=== PATIENT | female | born 1995 | race Caucasian/White ===

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

== ENCOUNTER 2017-02-06 11:18 | Emergency (ER) | payer BC ==
[~2017-02-06] VITALS: Ht 170.2 cm; Wt 74.7 kg
[~2017-02-06 11:18] MED LIST: BCPILLS PO; ONDA4TAB65 PO; OXYC1TAB3 PO; SERT1TAB72 PO; SYMIN160 INH
[2017-02-06 11:27] VITALS: Ht 170.2 cm; Wt 74.7 kg
[2017-02-06] MEDS ORDERED: SODIUM CHLORIDE 0.9% 1000ML 1,000 ML IV STA (11:43)
--- NOTE | 2017-02-06 12:23 | EMERGENCY ROOM VISIT NOTE ---
History First contact with patient: 11:30 Chief Complaint: SYNCOPE (NEAR SYNCOPE) Stated Complaint: NEAR SYNCOPE Nursing Triage Summary: pt arrived bls from [facility] pt was recieving fluids back and felt as if she was going to pass out. ems reports she is down approx 600cc fluid pt c/o left arm hematoma 10/18 for pain History of Present Illness The patient is a 21 year old female who presents to the Emergency Room via ambulance with complaints of "near-syncope". The patient states that she was by her life, donating blood/plasma today around 9 AM, and was finishing around 10 AM, when she noticed that the left antecubital IV began with bleeding, and also notes swelling of the left arm. She states that she felt very queasy, and almost passed out. She notes that she was down about 600 mL of fluid, therefore they began an IV in her right antecubital region, but were unsuccessful. They then sent her here for further evaluation and management, to include fluids. She at this time notes she feels a little of a headache, and notes pain in both antecubital regions. She has donated plasma twice in the past, with today being the third time. Review of Systems A complete 10-point Review of Systems was discussed with the patient, with pertinent positives and negatives listed in the History of Present Illness. All remaining Review of Systems questions can be considered negative unless otherwise specified. Past Medical/Surgical History Medical Problems: (1) Dehydration (2) Flank pain Family History No pertinent. Social History Smoking Status: Never Smoker Social History: Patient is currently a [employer] student. Current/Historical Medications Scheduled Control Pills ( Control Pills), 1 TAB PO DAILY Sertraline Hcl (Zoloft), 75 MG PO DAILY Allergies Coded Allergies: No Known Allergies (Unverified , 02/06/17) Physical Exam Vital Signs Date Time Temp Pulse Resp B/P (MAP) Pulse Ox O2 Delivery O2 Flow Rate FiO2 02/06/17 14:05 36.7 70 18 110/67 98 02/06/17 13:25 69 18 112/66 100 Room Air 02/06/17 11:27 36.7 71 18 117/62 96 Room Air Physical Exam VITAL SIGNS - Vital signs and nursing notes were reviewed. Patient is afebrile , normotensive, non-tachycardic and saturating well on room air 96%. GENERAL -21-year-old female appearing her stated age who is in no acute distress. Communicates well with provider and answers questions appropriately. SKIN - Without rashes. Both antecubital regions, illicit one small puncture wound each, without extravasation of blood. Small hematoma formation or the left antecubital region. No evidence of active extravasation. HEAD - NC/AT. EYES - PERRL with EOMI bilaterally. Sclera anicteric. EARS - No deformities of external structures noted on gross examination bilaterally. MOUTH/OROPHARYNX - Without perioral cyanosis. LUNGS - Chest wall symmetric without accessory muscle use, intercostals retractions, or central cyanosis. Normal vesicular breath sounds CTA B/L. No wheezes, rales, or rhonchi appreciated. CARDIAC - RRR with S1/S2. No murmur, rubs, or gallops appreciated. EXTREMITIES - No clubbing or peripheral cyanosis. No pretibial edema present. She is neurovascularly intact in the family's. Minimal tenderness to palpation overlying both antecubital regions. Please refer to skin regarding the rest of the examination. +5/5 strength noted in UE/LE bilaterally. NEUROLOGIC - Cranial nerves II through XII grossly intact. PSYCH - A&O. Pt is very pleasant and interacts well with examiner. Medical Decision & Procedures Laboratory Results Test 02/06/17 12:14 Bedside Hemoglobin 16.3 g/dl (12.0-16.0) Bedside Hematocrit 48 % (37-47) Bedside Sodium 138 mEq/L (135-144) Bedside Potassium 4.0 mEq/L (3.3-5.0) Bedside Chloride 102 mEq/L (101-112) Bedside Total CO2 23 mEq/l (24-31) Anion Gap 18.0 mmol/L (16-25) Bedside Blood Urea Nitrogen 15 mg/dl (7-18) Bedside Creatinine 0.7 mg/dl Bedside Glucose (other) 81 mg/dl (70-99) Bedside Ionized Calcium (Karen) 1.11 mmol/l Medications Administered Medications (Trade) Dose Ordered Sig/Sarita Route Start Time Stop Time Status Last Admin Dose Admin Sodium Chloride 1,000 ml @ 999 mls/hr Q1H1M STAT IV 02/06/17 11:43 02/06/17 12:43 DC 02/06/17 11:43 999 MLS/HR Medical Decision Patient was seen and evaluated as above. After passing a thorough history and physical examination, it was evident the patient is likely experiencing vasovagal near syncope secondary to seeing the blood coming out of her left arm , as well as being fluid depleted. I will establish an IV at this time, perform i-STAT, to verify hemoglobin is stable and then hydrate her with 1 L of normal saline. The puncture wounds from the venipuncture were inspected, and without gross abnormality. No active hemorrhages. She was neurovascularly intact in her extremities. 1 L of normal saline was instilled, and she is reevaluated during her stay. She was then feeling less dizzy, and was able to lay down, sit and stand without feeling lightheaded or dizzy. Should this time appears stable for outpatient management. She is to follow-up with [facility] regarding his symptoms today. She is to return for worsening. At this time do not suspect any emergent cause to her symptoms. She was educated upon worrisome symptoms which to return, had questions prior to discharge, and was discharged home in good condition. In evaluation treatment this patient the following differential diagnoses were entertained: [place], PE, vasovagal syncope, fluid depletion, among others. Impression Primary Impression: Dehydration Departure Information Dispostion Home / Self-Care Condition GOOD Referrals [facility] (PCP) Patient Instructions My [facility] Additional Instructions You were seen in the emergency Department for a near syncopal event following donating blood. At this time you been rehydrated with 1 L of saline. Please follow-up with [facility] services later in the week for recheck of your symptoms. Please return the emergency department with any new/concerning symptoms. Please use ibuprofen as directed on the bottle for any pain in the arm. Please use ice to the regions as necessary. Please be careful to not apply the extremity to the skin. Thank you for your time.
[2017-02-06 12:25] LABS: ISTAT CREATININE 0.7 mg/dl; ISTAT HEMOGLOBIN 16.3 g/dl (12.0-16.0); ISTAT IONIZED CALCIUM 1.11 mmol/l
[2017-02-06 14:05] VITALS: BP 110/67; PULSE 70; TEMP 36.7; O2SAT 98
== END 2017-02-06 14:06 | disposition home or self-care (01) ==
LOC: EDBD 11:18 → C.EDC 11:19
DX: E86.0 Dehydration (principal); Z79.899 Other long term (current) drug therapy

== ENCOUNTER → 2017-04-03 | Outpatient (CLI) | payer BC ==
[~2017-04-03] MED LIST changes: -ONDA4TAB65 PO; -OXYC1TAB3 PO; -SYMIN160 INH
[2017-04-03 13:48] LABS: PREG INTERNAL NEGATIVE QC NEG CLEAR BACKGROUND; PREG INTERNAL POSITIVE QC POS CONTROL LINE
== END | disposition home or self-care (01) ==
LOC: C.LAB1850 12:05
PROVIDERS: ATTEND Physician Assistant
DX: N94.6 Dysmenorrhea, unspecified (principal)

== ENCOUNTER 2017-07-03 22:47 | Emergency (ER) | payer BC, OTHER ==
[~2017-07-03] VITALS: Ht 170.2 cm; Wt 73.1 kg
[2017-07-03 22:51] VITALS: TEMP 37.3; Ht 170.2 cm; Wt 73.1 kg
[2017-07-03] MEDS ORDERED: ONDANSETRON INJ 2 MG/ML 2 ML VIAL IV STA (23:09)
[2017-07-03] MEDS ORDERED: KETOROLAC TROMETHAMINE 30 MG/ML VIAL IV STA (23:09)
[2017-07-03 23:36] VITALS: O2SAT 98
[2017-07-03 23:40] LABS: BASO % 0.5 %; BASO ABS # 0.03 K/uL (0-0.2); EOS % 1.1 %; EOS ABS # 0.06 K/uL (0-0.5); HEMATOCRIT 41.6 % (37-47); HEMOGLOBIN 14.7 g/dL (12.0-16.0); IG# 0.01 K/uL (0.00-0.02); LYMPH % 31.1 %; LYMPH ABS # 1.71 K/uL (1.2-3.4); MEAN CORPUSCULAR HEMOGLOBIN 30.8 pg (25-34); MEAN CORPUSCULAR HGB CONC 35.3 g/dl (32-36); MEAN PLATELET VOLUME 11.2 fL (7.4-10.4); MONO % 6.5 %; MONO ABS # 0.36 K/uL (0.11-0.59); NEUT % 60.6 %; NEUT ABS # 3.33 K/uL (1.4-6.5); PLATELET COUNT 186 K/uL (130-400); RED CELL DISTRIBUTION WIDTH CV 12.9 % (11.5-14.5); RED CELL DISTRIBUTION WIDTH SD 41.3 fL (36.4-46.3)
[2017-07-03 23:59] LABS: ALBUMIN 3.8 gm/dl (3.4-5.0); CREATININE 0.83 mg/dl (0.60-1.20); POTASSIUM 3.8 mmol/L (3.5-5.1)
[2017-07-04] MEDS ORDERED: OPTIRAY 320 IV PRN (01:00)
[2017-07-04] MEDS ORDERED: MoRPHine SULFATE 4 MG/ML 1 ML CARP\\VIAL IV STA (02:50)
--- NOTE | 2017-07-04 04:30 | EMERGENCY ROOM VISIT NOTE ---
History First contact with patient: 22:59 Chief Complaint: ABDOMINAL PAIN Stated Complaint: INTENSE BACK AND ABDOMINAL PAIN Nursing Triage Summary: Patient reports RUQ abdominal pain radiating to right back. Unable to stand up straight. History of Present Illness The patient is a 22 year old female who presents to the Emergency Room with complaints of right-sided abdominal pain and right side/flank pain for the past day that is steadily getting worse. Patient describes the pain as cramping, ranging in severity 5 out of 10. Nothing makes it better or worse. It occasionally radiates to her back. Patient denies chest pain, dyspnea, fever, chills, vomiting, diarrhea, urinary symptoms. She has had kidney stones before but this feels different. Review of Systems See HPI for pertinent positives & negatives. A total of 10 systems reviewed and were otherwise negative. Past Medical/Surgical History Medical Problems: (1) Dehydration (2) Flank pain Social History Smoking Status: Never Smoker Smokeless Tobacco Use: No Drug Use: none Occupation Status: [employer] student Current/Historical Medications Scheduled Control Pills ( Control Pills), 1 TAB PO DAILY Physical Exam Vital Signs Date Time Temp Pulse Resp B/P (MAP) Pulse Ox O2 Delivery O2 Flow Rate FiO2 07/04/17 03:37 61 16 105/56 95 Room Air 07/04/17 00:30 79 18 103/55 100 Room Air 07/03/17 23:36 98 Room Air 07/03/17 22:51 37.3 92 20 120/79 99 Room Air Physical Exam VITALS: Vitals are noted on the nurse's note and reviewed by myself. Vital signs stable. GENERAL: Pleasant female, in no acute distress, nondiaphoretic, well-developed well-nourished. SKIN: The skin was without rashes, erythema, edema, or bruising. There is no tenting of the skin. Capillary reflex less than 2 seconds. HEAD: Normocephalic atraumatic. EARS: External auditory canals clear, tympanic membranes pearly [place] without erythema or effusion bilaterally. EYES: Pupils equal round and reactive to light and accommodation. Conjunctivae without injection, sclerae without icterus. Extraocular movements intact. NOSE: Patent, turbinates without inflammation or discharge. MOUTH: Mucous membranes moist. Pharynx without erythema or exudate. Uvula midline. Airway patent. Tongue does not deviate. NECK: Supple without nuchal rigidity. No lymphadenopathy. No thyromegaly. Cervical spine is nontender. No JVD. HEART: Regular rate and rhythm without murmurs gallops or rubs. LUNGS: Clear to auscultation bilaterally without wheezes, rales or rhonchi. No dullness to percussion. No retractions or accessory muscle use. ABDOMEN: Positive bowel sounds x 4. Normal tympanic percussion. Soft, tender to palpation right upper and lower quadrants, no CVA tenderness, without masses or organomegaly. Ramirez sign negative. No guarding or rebound tenderness. MUSCULOSKELETAL: No muscle atrophy, erythema, or edema noted. NEURO: Patient was alert and oriented to person place and time. Normal sensation to light and sharp touch. No focal neurological deficits. Medical Decision & Procedures Laboratory Results 07/03/17 23:25 Red Blood Count 4.78, Mean Corpuscular Volume 87.0, Mean Corpuscular Hemoglobin 30.8, Mean Corpuscular Hemoglobin Concent 35.3, Mean Platelet Volume 11.2, Neutrophils (%) (Auto) 60.6, Lymphocytes (%) (Auto) 31.1, Monocytes (%) (Auto) 6.5, Eosinophils (%) (Auto) 1.1, Basophils (%) (Auto) 0.5, Neutrophils # (Auto) 3.33, Lymphocytes # (Auto) 1.71, Monocytes # (Auto) 0.36, Eosinophils # (Auto) 0.06, Basophils # (Auto) 0.03 07/03/17 23:25 Test 07/03/17 23:25 07/04/17 00:20 White Blood Count 5.50 K/uL (4.8-10.8) Red Blood Count 4.78 M/uL (4.2-5.4) Hemoglobin 14.7 g/dL (12.0-16.0) Hematocrit 41.6 % (37-47) Mean Corpuscular Volume 87.0 fL (80-100) Mean Corpuscular Hemoglobin 30.8 pg (25-34) Mean Corpuscular Hemoglobin Concent 35.3 g/dl (32-36) Platelet Count 186 K/uL (130-400) Mean Platelet Volume 11.2 fL (7.4-10.4) Neutrophils (%) (Auto) 60.6 % Lymphocytes (%) (Auto) 31.1 % Monocytes (%) (Auto) 6.5 % Eosinophils (%) (Auto) 1.1 % Basophils (%) (Auto) 0.5 % Neutrophils # (Auto) 3.33 K/uL (1.4-6.5) Lymphocytes # (Auto) 1.71 K/uL (1.2-3.4) Monocytes # (Auto) 0.36 K/uL (0.11-0.59) Eosinophils # (Auto) 0.06 K/uL (0-0.5) Basophils # (Auto) 0.03 K/uL (0-0.2) RDW Standard Deviation 41.3 fL (36.4-46.3) RDW Coefficient of Variation 12.9 % (11.5-14.5) Immature Granulocyte % (Auto) 0.2 % Immature Granulocyte # (Auto) 0.01 K/uL (0.00-0.02) Anion Gap 6.0 mmol/L (3-11) Est Creatinine Clear Calc Drug Dose 105.2 ml/min Estimated GFR () 117.7 Estimated GFR (Non- 101.5 BUN/Creatinine Ratio 16.0 (10-20) Calcium Level 9.0 mg/dl (8.5-10.1) Total Bilirubin 0.4 mg/dl (0.2-1) Direct Bilirubin 0.1 mg/dl (0-0.2) Aspartate Amino Transf (AST/SGOT) 21 U/L (15-37) Alanine Aminotransferase (ALT/SGPT) 21 U/L (12-78) Alkaline Phosphatase 41 U/L (45-117) Total Creatine Kinase 150 U/L (26-192) Total Protein 7.0 gm/dl (6.4-8.2) Albumin 3.8 gm/dl (3.4-5.0) Lipase 178 U/L (73-393) Human Chorionic Gonadotropin, Qual NEG (NEG) Urine Color YELLOW Urine Appearance CLEAR (CLEAR) Urine pH 7.5 (4.5-7.5) Urine Specific Bent 1.021 (1.000-1.030) Urine Protein NEG (NEG) Urine Glucose (UA) NEG (NEG) Urine Ketones NEG (NEG) Urine Occult Blood NEG (NEG) Urine Nitrite NEG (NEG) Urine Bilirubin NEG (NEG) Urine Urobilinogen NEG (NEG) Urine Leukocyte Esterase TRACE (NEG) Urine WBC (Auto) 1-5 /hpf (0-5) Urine RBC (Auto) 0-4 /hpf (0-4) Urine Hyaline Casts (Auto) 1-5 /lpf (0-5) Urine Epithelial Cells (Auto) >30 /lpf (0-5) Urine Bacteria (Auto) 1+ (NEG) Medications Administered Medications (Trade) Dose Ordered Sig/Sarita Route Start Time Stop Time Status Last Admin Dose Admin Ondansetron HCl (Zofran Inj) 4 mg NOW STAT IV 07/03/17 23:09 07/03/17 23:11 DC 07/03/17 23:34 4 MG Ketorolac Tromethamine (Toradol Inj) 30 mg NOW STAT IV 07/03/17 23:09 07/03/17 23:11 DC 07/03/17 23:34 30 MG Morphine Sulfate (MoRPHine SULFATE INJ) 4 mg NOW STAT IV 07/04/17 02:50 07/04/17 02:51 DC 07/04/17 03:09 4 MG ED Course Prior records/ancillary studies reviewed. Triage Nursing notes reviewed. Additional history obtained from friend. The patient's history was concerning for abdominal pain. Differential diagnosis: Etiologies such as appendicitis, diverticulitis, PUD, biliary pathology, UTI, pancreatitis, obstruction, mesenteric ischemia, aortic pathology, infections, inflammatory bowel disease, renal colic, as well as others were entertained. Physical examination findings: As above. ER treatment provided: Toradol, Zofran On reassessment the patient felt better. Diagnostics interpreted by me: The labs revealed no leukocytosis. Negative hCG Imaging studies: CT negative for appendicitis per radiology Ultrasound negative for cholecystitis per radiology Exam and history seem consistent with abdominal pain with unclear etiology. Patient unremarkable workup as above.. Patient no leukocytosis. Stable H&H. She was afebrile and nontoxic. She is tolerating fluids. She is advised follow -up health services today for reevaluation or here in the ER sooner for abdominal pain, fevers, vomiting, worsening signs or symptoms or as needed.By the evaluation outlined above emergent etiologies such as appendicitis, diverticulitis, PUD, biliary pathology, UTI, pancreatitis, obstruction, mesenteric ischemia, aortic pathology, infections, inflammatory bowel disease, renal colic, as well as others were deemed relatively unlikely. Patient was upset that there was no clear-cut answer for her pain today. I informed her that again extensive workup and no acute findings are noted on ultrasound or on CT imaging or laboratory testing. She is strongly encouraged to seek further evaluation and workup by health services for possible referral to GI and or orthopedics if her symptoms persist. The pt informed about the findings as listed above. All questions were answered. Return instructions were outlined and the patient was discharged in stable condition. Referral: The patient was referred back to their primary care physician/[facility] for follow-up in today for a recheck of the current condition. Case reviewed with my attending Medical Decision As above Medication Reconcilliation Current Medication List: was personally reviewed by me Blood Pressure Screening Patient's blood pressure: Normal blood pressure Impression Primary Impression: Right lower quadrant abdominal pain Additional Impression: Right upper quadrant abdominal pain Departure Information Dispostion Home / Self-Care Condition GOOD Referrals [facility] (PCP) Patient Instructions My [facility] Additional Instructions DO NOT drive, drink alcohol, operate machinery, or perform dangerous activities today. You were given medications in the ER that can affect your ability to safely function or operate a vehicle. Ibuprofen(Motrin, Advil) may be used for fever or pain. Use 600mg every six hours as needed. Take with food. Avoid using more than 2400mg in a 24 hour period. Do not use 2400mg per day for more than three consecutive days without physician direction. Prolonged inappropriate use can lead to stomach upset or ulcers. (AND/OR) Acetaminophen(Tylenol) may be used for fever or pain. Use 1000mg every six hours as needed. Avoid using more than 3000mg in a 24 hour period. Rest and drink plenty of fluids as tolerated. Slow sips of water or sports drinks are recommended instead of large amounts all at once. Continue current medications. Once your stomach is settled start with a clear liquid diet (jello, soup broth, etc.) and then advance as tolerated. You should avoid full, heavy meals for about 24 hrs from the time your symptoms resolved. Return to the ER immediately for worsening or persistent abdominal pain, vomiting, fevers, chest pains, difficulty breathing, black or bloody stools, worsening of your condition, or as needed. Follow up with health services in 24 hours for a recheck of your current condition. Problem Qualifiers
[2017-07-04 04:41] VITALS: BP 105/64; PULSE 64; O2SAT 95
--- NOTE | 2017-07-04 07:15 | DIAGNOSTIC IMAGING REPORT ---
ABDOMINAL ULTRASOUND, RIGHT UPPER QUADRANT HISTORY: Right upper quadrant abdominal pain.. COMPARISON: Abdominal ultrasound 09/22/2016. FINDINGS: Pancreas: The pancreas demonstrates a normal echotexture. Liver: Unremarkable. Gallbladder: No gallbladder wall thickening. No gallstones. Slightly contracted. CBD: 1 mm. Right kidney: No hydronephrosis. IMPRESSION: No significant abnormality identified within the right upper quadrant. Electronically signed by: Brendon Olievr M.D. 07/04/2017 7:14 AM Dictated Date/Time: 07/04/2017 7:12 AM
--- NOTE | 2017-07-04 07:20 | DIAGNOSTIC IMAGING REPORT ---
ABDOMEN AND PELVIS CT WITH IV AND ORAL CONTRAST CT DOSE: 350.32 mGy.cm HISTORY: Acute right lower quadrant abdominal pain rlq pain TECHNIQUE: Multiaxial CT images of the abdomen and pelvis were performed following the use of intravenous and oral contrast. A dose lowering technique was utilized adhering to the principles of ALARA. COMPARISON STUDY: CT abdomen and pelvis 09/21/2016, right upper quadrant ultrasound 07/03/2017. FINDINGS: Imaged inferior cardiac chambers are unremarkable. The lung bases are clear. There is no pneumatosis or pneumoperitoneum identified. Liver, spleen, pancreas, gallbladder and adrenal glands are within normal limits. Kidneys, ureters and urinary bladder are within normal limits. Uterus and adnexa are unremarkable. Trace free pelvic fluid adjacent to the right adnexum. Aorta is normal in course and caliber. No bulky adenopathy identified. Mildly prominent lymph nodes of the mid mesentery are likely physiologic. No bowel obstruction or focal bowel wall thickening. The appendix appears normal within the abdominal right lower quadrant. Soft tissues are unremarkable. Bones appear intact. Mild levoscoliosis of the lumbar spine may be positional. IMPRESSION: 1. No acute intra-abdominal or intrapelvic abnormality identified. No evidence of acute appendicitis or bowel obstruction. 2. Trace free pelvic fluid, likely physiologic. 3. Mild levoscoliosis of the lumbar spine be accentuated by patient positioning. Electronically signed by: Hubert Ibarra M.D. 07/04/2017 7:19 AM Dictated Date/Time: 07/04/2017 7:15 AM
== END 2017-07-04 04:43 | disposition home or self-care (01) ==
LOC: C.EDB 22:48
DX: R10.11 Right upper quadrant pain (principal); R10.31 Right lower quadrant pain; Z79.3 Long term (current) use of hormonal contraceptives